=== PATIENT | female | born 2000 | race Two or more races ===

== ENCOUNTER 2020-08-03 15:18 | Emergency (ER) | payer MEDICAID ==
[~2020-08-03] VITALS: Ht 154.9 cm; Wt 72.6 kg
[2020-08-03 15:21] VITALS: BP 108/72
[2020-08-03] MEDS ORDERED: LIDOCAINE 1%-EPI 1:100K, 20ML ONE (15:58)
[2020-08-03] MEDS ORDERED: LIDOCAINE 1%, 10ML INFIL ONE (16:00)
== END 2020-08-03 16:46 | disposition home or self-care (01) ==
LOC: ED 15:41
DX: S00.551A Superficial foreign body of lip, initial encounter (principal); L02.01 Cutaneous abscess of face; K13.0 Diseases of lips; X58.XXXA Exposure to other specified factors, initial encounter; Y93.89 Activity, other specified; Y92.89 Other specified places as the place of occurrence of the external cause; Y99.8 Other external cause status
CPT/HCPCS: 10120; 40800; 99284; 99285

== ENCOUNTER 2021-07-14 09:06 | Emergency (ER) | payer BC ==
[~2021-07-14] VITALS: Ht 154.9 cm; Wt 84.4 kg
[2021-07-14 09:15] VITALS: BP 123/79
--- NOTE | 2021-07-14 09:24 | NUR ---
patient arrives with recent coughing, and a "lump in her throat". she is unvaccinated and doesn't want to be. isolation precautions maintained.
== END 2021-07-14 09:52 | disposition home or self-care (01) ==
LOC: ED 09:36
DX: B34.9 Viral infection, unspecified (principal); Z20.822 Contact with and (suspected) exposure to COVID-19
CPT/HCPCS: 99283; U0003; U0005